=== PATIENT | male | born 2000 | race Caucasian/White ===

== ENCOUNTER 2024-03-05 05:07 | Emergency (ER) | payer BC, SELFPAY ==
[2024-03-05 05:08] VITALS: BP 134/77; PULSE 81; RESP 16; TEMP 36.6; O2SAT 99; BMI 32.5
--- NOTE | 2024-03-05 05:14 | XR_ITS ---
PROCEDURE INFORMATION: Exam: XR Right Shoulder Exam date and time: 03/05/2024 5:13 AM Age: 23 years old Clinical indication: Pain; Shoulder; Right; Additional info: Pain x3d TECHNIQUE: Imaging protocol: Radiologic exam of the right shoulder. Views: 2 or more views. COMPARISON: CR CXR2V XR chest 2V 03/19/2018 10:50 AM FINDINGS: Bones/joints: Normal. Lungs: Stable left apical lung nodule. Azygous lobe and fissure. Soft tissues: Normal. IMPRESSION: No acute or aggressive osseous abnormality.
[2024-03-05 05:20] VITALS: BP 134/77; PULSE 81; RESP 16; TEMP 36.6; O2SAT 99
--- NOTE | 2024-03-05 05:21 | ED_ITS ---
Discharge Plan Disposition Patient Disposition: Home, Self-Care Condition: Good Referrals Follow up/Referrals: Sunny Mendieta [Primary Care Provider] - See instructions Activity Restrictions/Add. Instructions Additional Instructions/Restrictions: You were evaluated in the ER. You are appropriate for discharge at this time. Continue taking Tylenol or ibuprofen as needed for pain. Do not exceed the recommended doses on the bottles, drink a full glass of water and eat a snack anytime you take these medications to avoid side effects. Make an appointment with your primary care physician for reevaluation in 2 to 3 days. Return to the ER with new, worsening, or otherwise concerning symptoms. Clinical Impressions Clinical Impression: Acute pain of right shoulder Stand Alone Forms Stand Alone Forms: Work/School Release Discharge ED Provider: Yamilex Heck Adult HPI General Chief complaint: PAIN Stated complaint: right shoulder pain Time Seen by Provider: 03/05/24 05:13 Mode of Arrival: Ambulatory Source of Information: Patient Limitations: No Limitations Description of Symptoms (Recalled from ER Triage Doc. by RN): Pt presents to ED for R shoulder pain, NKI. Pt states this has been going on for 3 or 4 days. Pt has taken OTC Tylenol and states it doesn't give him relief. Pt has no other complaints at this time. Pt is A&O*4. History of Present Illness HPI narrative: 23-year-old male presents to the ER with concerns of right shoulder pain for the last 3 days. Patient states he is taken Tylenol without any significant relief. 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 He denies any known injury. He states he has not lifted or moved anything heavy that he can remember and does not remember acute onset of the symptoms while doing anything. Patient states he has pain while elevating the right arm, the pain radiates down into the arm. He is not having any difficulty breathing or chest pains. He does not have pain in the neck or changes in the sensation in his right arm when moving the head/neck. He states the pain radiates from the right shoulder down approximately jail to the elbow. Related Data Allergies Allergy/AdvReac Type Severity Reaction Status Date / Time No Known Allergies Allergy Unverified 10/09/17 14:17 [facility] Disclaimer: The information contained in this section may have been updated after the patient was seen, as this information can be updated by other users. Social History Smoking Status: Never smoker alcohol intake: never current occupational status: employed Travel in the last 8 weeks: None ROS Obtained: Yes All systems reviewed & no additional complaints except as documented Constitutional Constitutional: Denies chills, Denies fever(s), Denies headache(s) and Denies weakness Eyes Eyes: Denies change in vision ENT Ears, Nose, Mouth, and Throat: Denies dizziness, Denies headache(s), Denies nasal congestion and Denies sore throat Cardiovascular Cardiovascular: Denies chest pain, Denies dyspnea and Denies leg edema Respiratory Respiratory: Denies cough and Denies dyspnea Gastrointestinal Gastrointestingal: Denies constipation, diarrhea, nausea or vomiting Genitourinary Male Genitourinary: Denies difficulty urinating Musculoskeletal Musculoskeletal: Reports arthralgias (Right shoulder pain), Reports myalgias, Denies numbness and Denies tingling Integumentary/Breasts Skin/Breast: Denies change in pigmentation Neurologic Neurologic: Denies dizziness, Denies headache(s), Denies numbness, Denies tingling and Denies weakness Physical Exam General General appearance: alert and in no apparent distress Head Head exam: atraumatic and normocephalic Eye Eye exam: Present PERRL and EOMI ENT ENT exam: Present mucous membranes moist Neck Neck exam: Present normal inspection and full ROM Chest Chest inspection: Present symmetric chest wall rise Respiratory Respiratory exam: Absent respiratory distress or stridor Cardiovascular Cardiovascular exam: Present regular rate and normal rhythm Abdominal Exam Abdominal exam: Present soft; Absent distention or tenderness Extremities Exam Extremities exam: Present full ROM, tenderness (Right distal trapezius, right shoulder at the joint) and other (Neurovascularly intact distally, full strength. Range of motion is full with full strength in all planes on rotator cuff testing though he has pain with empty can test); Absent joint swelling Neurological Exam Neurological exam: Present alert and oriented X3; Absent motor sensory deficit Psychiatric Psychiatric exam: Present normal affect and normal mood Skin Skin exam: Present warm and dry Medical Decision Making Thompson Inquiry Pt receiving controlled substance: No Vital Signs: 03/05/24 05:08 03/05/24 05:20 Temperature 97.9 F 97.9 F Temperature Source Oral Oral Pulse Rate 81 Pulse Rate [Left] 81 Respiratory Rate 16 16 Blood Pressure 134/77 Blood Pressure [Left Arm] 134/77 Blood Pressure Mean [Left Arm] 96 02 Sat by Pulse Oximetry 99 99 Oxygen Delivery Method Room Air Room Air Lab Data Lab Results 03/05/24 05:31: WBC 9.1, RBC 5.60, Hgb 16.4, Hct 49.4, MCV 88.2, MCH 29.4, MCHC 33.3, RDW 14.1, Plt Count 381, MPV 7.8, Neut % (Auto) 58.0, Lymph % (Auto) 33.6, [place] % (Auto) 5.3, Eos % (Auto) 2.1, Baso % (Auto) 0.9, Neut # (Auto) 5.3, Lymph # (Auto) 3.1, [place] # (Auto) 0.5, Eos # (Auto) 0.2, Baso # (Auto) 0.1, Troponin I < 0.01 03/05/24 05:31 Orders (Tests/Meds): ED MEDICATIONS Discontinued Medications Generic Name Dose Route Start Last Admin Trade Name Ramya PRN Reason Stop Dose Admin Ketorolac Tromethamine 15 mg 03/05/24 05:14 03/05/24 05:32 Ketorolac 30mg/Ml Vial IV 03/05/24 05:15 15 mg ONCE ONE Administration ORDERS Category Date Time Status Shoulder XR right miminum 2 views [XR shoulder RT min Exams 03/05/24 05:14 Taken 2V] Stat CBC w/Auto Diff [Complete Blood Count Auto Diff] Stat Lab 03/05/24 05:31 Completed Trop I [Troponin I] Stat Lab 03/05/24 05:31 Completed Troponin I Q3H Lab 03/05/24 08:15 Ordered Troponin I Q3H Lab 03/05/24 11:15 Ordered ECG Request Stat Y 03/05/24 05:14 Ordered Medical Decision Narrative: In summary, 23-year-old male presents to the ER with concerns of right shoulder pain. Differential diagnosis includes but is not limited to fracture, dislocation, soft tissue injury, rotator cuff injury, review of previous records also demonstrates patient has a history of SVT and atypical chest pain which is a comorbidity of current condition and increases the risk of patient having ACS or cardiac abnormality contributing to his complaint. On initial evaluation, patient has tenderness of the right trapezius and shoulder joint, range of motion is full though he has pain with empty can test. Neurovascularly intact throughout. EKG personally interpreted demonstrates normal sinus rhythm, rate 71, TX slightly short at 114, however there is no delta wave, normal axis, normal QTc, no STEMI X-ray personally interpreted demonstrates no acute osseous abnormality of the right shoulder, no abnormality in the right hemithorax, no widened mediastinum. See radiology read for final interpretation. Labs personally reviewed demonstrate no leukocytosis or anemia, CBC within normal limits, initial troponin was low at less than 0.01, given patient's duration of symptoms, this is reassuring against acute cardiac event and he does not require serial troponins. Patient received Toradol for pain. On reassessment, he continues to be stable. He is appropriate for discharge. Patient was given instructions on symptomatic management, follow up instructions, and return precautions for the emergency department. Patient indicated understanding and was discharged in stable condition. Critical Care Critical Care Time Critical Care Time: No
--- NOTE | 2024-03-05 05:29 | ECG_ITS ---
APPROVED REPORT Exam: Resting ECG HR:71 bpm ECG Measurements Heart Rate 71 AXES MO 114 P 7 QRSd 94 QRS 75 QT 370 T 29 QTc 393 Conclusion SINUS RHYTHM WITH SHORT MO INTERVAL POSSIBLE RIGHT VENTRICULAR CONDUCTION DELAY [RSR (QR) IN V1/V2] NONSPECIFIC T-WAVE ABNORMALITY BORDERLINE ECG UNCONFIRMED REPORT Electronically signed by : VIV JUAREZ, 03/06/2024 02:23:20
[2024-03-05] MEDS: KETOROLAC 30MG/ML VIAL 15 MG IV (05:32)
[2024-03-05 05:38] LABS: Basophils # 0.1 K/mm3 (0-0.2); Basophils % 0.9 % (0.1-2.0); Eosinophils # 0.2 K/mm3 (0.0-0.4); Eosinophils % 2.1 % (0.1-12.0); Hematocrit 49.4 % (42.0-52.0); Hemoglobin 16.4 g/dL (14.1-18.0); Lymphocytes # 3.1 K/mm3 (0.7-4.5); Lymphocytes % 33.6 % (10-50); Mean Corpuscular HGB Conc 33.3 g/dL (31.8-35.4); Mean Corpuscular Hemoglobin 29.4 pg (27.0-31.2); Mean Corpuscular Volume 88.2 fl (80-94); Mean Platelet Volume 7.8 fl (7.4-10.4); Monocytes # 0.5 K/mm3 (0.1-1.0); Monocytes % 5.3 % (1.7-9.3); Neutrophils # 5.3 K/mm3 (1.8-7.8); Platelet Count 381 K/mm3 (142-424); Red Cell Distribution Width 14.1 % (11.5-17.5); White Blood Count 9.1 K/mm3 (4.8-10.8)
[2024-03-05 05:58] LABS: Troponin I < 0.01 ng/ml (0.00-0.034)
[2024-03-05 06:01] VITALS: BP 125/62; PULSE 76; RESP 18; TEMP 36.6; O2SAT 99
== END 2024-03-05 06:09 | disposition home or self-care (01) ==
PROVIDERS: Emergency Provider Emergency Medicine; PCP Family Medicine
DX: M25.511 Pain in right shoulder (principal)
CPT/HCPCS: 73030; 84484; 85025; 93005; 96374; 99284

== ENCOUNTER 2025-08-02 15:08 | Emergency (ER) | payer SELFPAY ==
[2025-08-02 15:14] VITALS: BP 156/89; PULSE 75; RESP 15; TEMP 36.6; O2SAT 99; BMI 35.4
--- OUTSIDE RECORDS SUMMARY | 2025-08-02 15:33 | XMS_ITS | Clinical Summary ---
Author Organization [facility] Address [facility] [place] [address] Care Team Providers Care Sorority Supervisor Name Role Phone Unavailable Primary Care Provider Unavailabl e Source Comments This information has been disclosed to you from confidential records protectedfrom disclosure by state law. You shall make no further disclosure of thisinformation without the specific, written, and informed release of theindividual to whom it pertains, or as otherwise permitted by law. A generalauthorization for the release of medical or other information is not sufficientfor the purposes of therelease of HIV test results or diagnoses. [id number] Social History Tobacco Use Types Packs/Day Years Used Date Smoking Tobacco: Never Assessed Sex and Gender Information Value Date Recorded Sex Assigned at Not on file Legal Sex Male 2:28 PM EST Gender Identity Not on file Sexual Orientation Not on file Plan of Treatment Not on file
[2025-08-02 16:00] VITALS: BP 172/105; PULSE 86; O2SAT 98
[2025-08-02] MEDS: TETRACAINE/BENZOCAINE/BUTAMBEN 56 GM SPRAY TP (16:04)
[2025-08-02] MEDS: BUPIVACAINE 0.5% 30ML VIAL 25 MG IJ (16:04)
[2025-08-02] MEDS: OXYCODONE 5MG IMMEDIATE RELEASE TABLET 5 MG PO (16:04)
--- NOTE | 2025-08-02 16:05 | ED_ITS ---
<Statement entered by Loren Dye DO - 08/04/25 23:53> I was consulted by the TACHO, and we discussed the complexity of problems being addressed. I approve the treatment and management plan for this patient's care in the emergency department, thus performing a substantial portion of the medical decision making. Loren Dye DO Discharge Plan Disposition Patient Disposition: Home, Self-Care Referrals Follow up/Referrals: Sunny Mendieta [Primary Care Provider, Medical] - See instructions Activity Restrictions/Add. Instructions Additional Instructions/Restrictions: Today you were evaluated in the emergency department for dental pain, you were given a dental block. Please follow-up with your dentist tomorrow or Sunday. Return to the ED for any worsening of your condition. Clinical Impressions Clinical Impression: Pain, dental Instructions Patient Instructions: DI for Dental Pain Print Language Print Language: Thai Discharge ED Provider: Loren Dye General Adult HPI General Chief complaint: Dental/Oral Stated complaint: toothache Time Seen by Provider: 08/02/25 15:24 Mode of Arrival: Ambulatory Source of Information: Patient Description of Symptoms (Recalled from ER Triage Doc. by RN): patient states he has had a toothache since sunday. bottom left molar. 05/31 aching pain. History of Present Illness HPI narrative: patient is a 25-year-old male with PMHx paroxysmal SVT who presents to the ED with left lower dental pain that started 2 days ago. Patient states he is having difficulty sleeping at night due to the dental pain. He is established with a dentist, Dr. Lr, will attempt to see him tomorrow however tomorrow is a holiday. Patient states he has had 1 dental abscess in the past, has not been on any recent antibiotics. Tylenol and Motrin are not currently helping with his dental pain. Related Data Allergies Allergy/AdvReac Type Severity Reaction Status Date / Time No Known Allergies Allergy Unverified 10/09/17 14:17 [facility] Disclaimer: The information contained in this section may have been updated after the patient was seen, as this information can be updated by other users. Social History (Updated 03/05/24 @ 06:01 by Yamilex Heck MD) Smoking Status: Never smoker alcohol intake: never current occupational status: employed Travel in the last 8 weeks?: None Have you lived/traveled outside US in past 30 days?: No Contact w/someone who lives/traveled outside US past 30 days?: No Exposure to someone with infectious disease in past 14 days?: No Do you have a fever (greater than 100.4 F or 38 C)?: No Have you tested positive for COVID-19?: No Exposed to someone with COVID-19 in past 14 days?: No Do you have a sore throat?: No Do you have a cough?: No Do you have any weakness?: No Do you have any diarrhea?: No Are you experiencing any unusual bleeding?: No Do you have any muscle aches/pain?: No Do you have any abdominal pain?: No Are you experiencing loss of taste or smell?: No ROS Obtained: Yes Systems reviewed as appropriate & no additional complaints except as documented Physical Exam General General appearance: alert Head Head exam: atraumatic Eye Eye exam: Present PERRL Neck Neck exam: Present full ROM Respiratory Respiratory exam: Present normal lung sounds bilaterally Cardiovascular Cardiovascular exam: Present regular rate Back Exam Back exam: Present full ROM Neurological Exam Neurological exam: Present alert, oriented X3 and normal gait Skin Skin exam: Present warm and dry Medical Decision Making Medical Records Screening: Per USPSTF and CDC recommendations, given the prevalence of disease in our region, it is our hospital?s policy to screen for HIV and viral Hepatitis for all patients aged 18 and over and those with ongoing risk factors. Thompson Inquiry Pt receiving controlled substance: No Vital Signs: 08/02/25 15:14 08/02/25 16:00 08/02/25 16:41 Temperature 98 F 98 F Temperature Source Oral Pulse Rate 86 62 Pulse Rate [Right Radial] 75 Respiratory Rate 15 16 Blood Pressure 172/105 H 150/95 H Blood Pressure [Right Arm] 156/89 H Blood Pressure Mean [Right Arm] 111 Blood Pressure Source [Right Arm] Automatic Cuff Blood Pressure Position [Right Arm] Supine 02 Sat by Pulse Oximetry 99 98 Oxygen Delivery Method Room Air Room Air Orders (Tests/Meds): ED MEDICATIONS Discontinued Medications Generic Name Dose Route Start Last Admin Trade Name Freq PRN Reason Stop Dose Admin Benzocaine/Butamben/Tetracaine HCl 1 gm 08/02/25 15:46 08/02/25 16:04 Tetracaine/Benzocaine/Butamben 56 Gm [place] TP 09/01/25 15:45 1 gm NEEDED PRN Administration Toothache Bupivacaine HCl 25 mg 08/02/25 15:46 08/02/25 16:04 Bupivacaine 0.5% 30ml Vial IJ 08/02/25 15:47 25 mg ONCE ONE Administration Lidocaine HCl 15 ml 08/02/25 16:04 08/02/25 16:26 Lidocaine 2% Viscous Bobbi 15ml Udc PO 08/02/25 16:05 15 ml ONCE ONE Administration Oxycodone HCl 5 mg 08/02/25 16:02 08/02/25 16:04 Oxycodone 5mg Immediate Release Tablet PO 08/02/25 16:03 5 mg ONCE ONE Administration Medical Decision Narrative: In summary, patient is a 25-year-old male with PMHx paroxysmal SVT who presents to the ED with left lower dental pain that started 2 days ago. Patient states he is having difficulty sleeping at night due to the dental pain. He is established with a dentist, Dr. Lr, will attempt to see him tomorrow however tomorrow is a holiday. Patient states he has had 1 dental abscess in the past, has not been on any recent antibiotics. Tylenol and Motrin are not currently helping with his dental pain. Upon initial evaluation, patient is alert, oriented and cooperative. He is hypertensive, he has left lower molar dental tenderness, he has good dental hygiene. Discussed with patient we can perform a dental block and administer pain medication while in the ED. Patient is agreeable at this time. Administered oxycodone 5 mg. Cetacaine spray used on left lower molar area. 3 mL of bupivacaine 0.5% injected for dental block, patient tolerated the procedure well. Pain under control after dental block. Patient was given dental balls while in the ED. Discussed with patient he will need to follow-up with dentistry this week. Discussed return precautions to the ED and patient verbalized understanding. Critical Care Critical Care Time Critical Care Time: No
[2025-08-02] MEDS: LIDOCAINE 2% VISCOUS SOL 15ML UDC 15 ML PO (16:26)
[2025-08-02 16:41] VITALS: BP 150/95; PULSE 62; RESP 16; TEMP 36.6; O2SAT 98
== END 2025-08-02 16:44 | disposition home or self-care (01) ==
PROVIDERS: Emergency Provider Student in an Organized Health Care Education/Training Program; PCP Family Medicine
DX: K08.89 Other specified disorders of teeth and supporting structures (principal)
CPT/HCPCS: 99283; J0665